=== PATIENT | female | born 1980 | race Caucasian/White ===

== ENCOUNTER 2018-01-14 11:17 | Inpatient (IN) | payer MEDICAID ==
[~2018-01-14] VITALS: Ht 157.5 cm; Wt 72.6 kg
[2018-01-14 12:08] LABS: BASOPHIL % 0.3 % (0-2); CALCIUM 8.8 mg/dL (8.5-10.1); CARBON DIOXIDE 28.1 mmol/L (21-32); CHLORIDE SERUM 103 mmol/L (98-107); CREATININE SERUM 0.9 mg/dL (0.6-1.0); GFR1 > 60 mL/min; GLUCOSE SERUM 70 mg/dL (74-106); PLATELET COUNT 191 x10^3mcL (130-400); POTASSIUM SERUM 4.1 mmol/L (3.5-5.1); SODIUM SERUM 138 mmol/L (136-145)
[2018-01-14 12:09] LABS: RED CELL DISTRIBUTION WIDTH 15.8 % (11.5-14.5)
[2018-01-14 12:12] LABS: ALKALINE PHOSPHATASE 79 U/L (46-116); ALT/SGPT 37 U/L (14-59); AST/SGOT 22 U/L (15-37); BILIRUBIN TOTAL 0.37 mg/dL (0.20-1.00); LIPASE 241 IU/L (73-393); TOTAL PROTEIN, SERUM 7.2 g/dL (6.4-8.2)
[2018-01-14 14:41] LABS: UA SPECIFIC GRAVITY <=1.005 (1.005-1.035); microscopic required? YES; urine erythrocyte 3+ (NEGATIVE)
[2018-01-14 14:52] LABS: CHOLESTEROL/HDL RATIO 3.9; MAGNESIUM 2.1 mg/dL (1.8-2.4)
[2018-01-14 14:54] LABS: AMPHETAMINE QUAL UR NONE DETECTED (NEG <=1000)
[2018-01-14 15:00] LABS: T3 TOTAL 1.04 ng/mL
[2018-01-14 15:05] VITALS: BP 131/77
[2018-01-14 15:23] LABS: FREE THYROXINE INDEX 3.1 ug/dL (1.4-4.5); T4(THYROXINE) 8.9 ug/dL (4.7-13.3)
[2018-01-14 15:43] LABS: RED BLOOD CELLS 4.31 M/mm3 (4.10-5.10)
[2018-01-14 16:03] LABS: TOTAL IRON BINDING CAPACITY 401 ug/dL (250-450)
[2018-01-14 16:07] LABS: IRON 24 ug/dL (50-170)
[2018-01-14 21:19] VITALS: BP 125/80
[2018-01-15 00:24] VITALS: BP 97/52
[2018-01-15 05:49] VITALS: BP 99/55
[2018-01-15 07:07] LABS: CALCIUM 8.7 mg/dL (8.5-10.1); CARBON DIOXIDE 27.3 mmol/L (21-32); CHLORIDE SERUM 107 mmol/L (98-107); CREATININE SERUM 0.8 mg/dL (0.6-1.0); GFR1 > 60 mL/min; GLUCOSE SERUM 88 mg/dL (74-106); MAGNESIUM 2.1 mg/dL (1.8-2.4); PHOSPHOROUS 3.3 mg/dL (2.5-4.9); POTASSIUM SERUM 4.6 mmol/L (3.5-5.1); SODIUM SERUM 140 mmol/L (136-145)
[2018-01-15 07:26] LABS: BASOPHIL % 0.6 % (0-2); PLATELET COUNT 178 x10^3mcL (130-400)
[2018-01-15 07:34] LABS: RED CELL DISTRIBUTION WIDTH 15.7 % (11.5-14.5)
[2018-01-15 09:47] VITALS: BP 104/56
[2018-01-15 16:54] VITALS: BP 94/60
[2018-01-15 20:50] VITALS: BP 107/57
[2018-01-16 06:10] VITALS: BP 100/55
[2018-01-16 08:40] VITALS: BP 120/70
[2018-01-16 09:34] VITALS: BP 120/70
[2018-01-16] MEDS ORDERED: FLO4 PO (11:18)
[2018-01-16] MEDS ORDERED: NOR10T PO (11:19)
[2018-01-16] MEDS ORDERED: MOT600 PO (11:19)
[2018-01-16] MEDS ORDERED: FER300 PO (11:20)
[2018-01-16 12:40] LABS: BASOPHIL % 0.2 % (0-2); PLATELET COUNT 214 x10^3mcL (130-400)
[2018-01-16 13:00] LABS: CALCIUM 8.7 mg/dL (8.5-10.1); CARBON DIOXIDE 27.5 mmol/L (21-32); CHLORIDE SERUM 104 mmol/L (98-107); CREATININE SERUM 0.8 mg/dL (0.6-1.0); GFR1 > 60 mL/min; GLUCOSE SERUM 104 mg/dL (74-106); MAGNESIUM 2.2 mg/dL (1.8-2.4); PHOSPHOROUS 3.1 mg/dL (2.5-4.9); POTASSIUM SERUM 3.9 mmol/L (3.5-5.1); SODIUM SERUM 140 mmol/L (136-145)
[2018-01-16 17:42] VITALS: BP 105/63
== END 2018-01-16 18:00 | disposition home or self-care (01) | DRG 446 ==
LOC: ED 11:17 → DU 12:54 → MU 12:54 → DU 14:30 → MU 01-15 09:02
PROVIDERS: Emergency Medicine; Family Medicine; Urology
PROC: 0T778DZ Dilation of Left Ureter with Intraluminal Device, Via Natural or Artificial Opening Endoscopic (ICD-10-PCS; 2018-01-15)
PROC: 0TC78ZZ Extirpation of Matter from Left Ureter, Via Natural or Artificial Opening Endoscopic (ICD-10-PCS; principal; 2018-01-15 14:00)
DX: N20.2 Calculus of kidney with calculus of ureter (principal); E78.5 Hyperlipidemia, unspecified; Z83.3 Family history of diabetes mellitus; Z82.49 Family history of ischemic heart disease and other diseases of the circulatory system; D64.9 Anemia, unspecified
CPT/HCPCS: 83880; 84439; C1769; C2625; J0690; J1885; J2250; J2270; J2405; J3010; J3490; J7030; J7120; Q0092; Q0162; Q9967

== ENCOUNTER 2018-01-21 13:40 | Emergency (ER) | payer MEDICAID ==
[~2018-01-21] VITALS: Ht 157.5 cm; Wt 71.7 kg
[~2018-01-21 13:40] MED LIST: FER300 PO; FLO4 PO; MOT600 PO; NOR10T PO
[2018-01-21 13:43] VITALS: Ht 157.5 cm; Wt 71.7 kg
[2018-01-21 15:20] LABS: PLATELET COUNT 151 x10^3mcL (130-400)
[2018-01-21 15:29] LABS: CALCIUM 8.4 mg/dL (8.5-10.1); CARBON DIOXIDE 24.6 mmol/L (21-32); CHLORIDE SERUM 106 mmol/L (98-107); CREATININE SERUM 0.9 mg/dL (0.6-1.0); GFR1 > 60 mL/min; GLUCOSE SERUM 91 mg/dL (74-106); POTASSIUM SERUM 3.6 mmol/L (3.5-5.1); SODIUM SERUM 140 mmol/L (136-145)
[2018-01-21 15:30] LABS: microscopic required? YES; urine erythrocyte 2+ (NEGATIVE)
[2018-01-21 15:34] LABS: ALKALINE PHOSPHATASE 98 U/L (46-116); ALT/SGPT 70 U/L (14-59); AST/SGOT 48 U/L (15-37); BILIRUBIN TOTAL 0.3 mg/dL (0.20-1.00); TOTAL PROTEIN, SERUM 6.7 g/dL (6.4-8.2)
[2018-01-21 16:13] LABS: BASOPHIL % 0 % (0-2); RED CELL DISTRIBUTION WIDTH 15.6 % (11.5-14.5)
[2018-01-21 18:14] VITALS: BP 119/70
== END 2018-01-21 18:14 | disposition home or self-care (01) ==
LOC: ED 13:40
PROVIDERS: Emergency Medicine
DX: N39.0 Urinary tract infection, site not specified (principal); R51 Headache; Z96.0 Presence of urogenital implants
CPT/HCPCS: J0696; J0780; J1885; J2405; J3010; J7030